=== PATIENT | female | born 1995 | race Hispanic/Latino ===

== ENCOUNTER 2024-12-03 11:00 | Emergency (ER) | payer SELFPAY ==
[2024-12-03] MEDS ORDERED: Lidocaine 1% w/Epinephrine 1:200K 30 ML VIAL ONE (12:52)
[2024-12-03] MEDS ORDERED: Boostrix 0.5 ML (Tdap) VIAL (>/=7 yrs of age) ONE (12:52)
== END 2024-12-03 13:57 | disposition home or self-care (01) ==
LOC: CSHERS 11:00
DX: L02.11 Cutaneous abscess of neck (principal); Z23 Encounter for immunization
CPT/HCPCS: 10060; 90471; 90715